=== PATIENT | female | born 2000 | race Caucasian/White ===

== ENCOUNTER 2025-06-06 09:49 | Outpatient (CLI) | payer OTHER | END 2025-06-06 09:50 | disposition home or self-care (01) | LOC: CSHSLEEP 09:49 | PROVIDERS: ATTEND Family Medicine | DX: G47.9 Sleep disorder, unspecified (principal); G25.81 Restless legs syndrome; R53.83 Other fatigue; F31.9 Bipolar disorder, unspecified; G47.10 Hypersomnia, unspecified | CPT/HCPCS: 95810 ==